=== PATIENT | male | born 1965 | race Caucasian/White ===

== ENCOUNTER → 2023-04-11 | Outpatient (REF) | payer OTHER | LOC: M LAB REF 16:29 | PROVIDERS: ATTEND Physician Assistant Medical | DX: Z11.59 Encounter for screening for other viral diseases (principal) ==

== ENCOUNTER → 2023-11-06 | Outpatient (CLI) | payer OTHER | LOC: M WUC 10:53 | PROVIDERS: ATTEND Physician Assistant Medical | DX: M47.896 Other spondylosis, lumbar region (principal) ==

== ENCOUNTER → 2024-11-04 | Outpatient (CLI) | payer OTHER | LOC: M PLARAD 10:51 | PROVIDERS: ATTEND Internal Medicine | DX: M51.362 Other intervertebral disc degeneration, lumbar region with discogenic back pain and lower extremity pain (principal) ==